=== PATIENT | female | born 1935 | race Caucasian/White ===

== ENCOUNTER 2022-01-14 18:58 | Emergency (ER) | payer MEDICARE, OTHER, MEDICAID ==
[~2022-01-14] VITALS: Ht 157 cm; Wt 58.9 kg
[~2022-01-14 18:58] MED LIST: AMLO10TA PO; ASPI-624 PO; CLOP75TA PO; CYCL10TA9 PO; HYDR-2890 PO; LISI20TA PO; PARO20TA4 PO; PRV20T PO
[2022-01-14 19:00] VITALS: BP 156/77
--- NOTE | 2022-01-14 19:12 | ED Fall/Injury ---
General Stated Complaint: FALL Source: patient (PT IS POOR HISTORIAN), EMS, [facility]pc records History of Present Illness Date Seen by Provider: Jan 14, 2022 Time Seen by Provider: 19:05 Initial Comments PT ARRIVES VIA EMS FROM [facility]--NO IMMOBILIZATION PT REPORTEDLY FELL AT THE LONG-TERM--NO CALL / REPORT FROM LONG-TERM DETAILS OF INCIDENT ARE NOT KNOWN--IS NOT KNOWN IF WITNESSED OR NOT, WHERE SHE FELL, WHEN SHE WAS LAST SEEN, ETC. BASELINE MENTATION IS NOT KNOWN AT THIS TIME, OTHER THAN LONG-TERM STAFF REPORTED TO EMS STAFF THAT WHEN PT GETS MAD, SHE WON'T TALK. WAS ALSO REPORTED TO EMS THAT PT WAS AT [facility] YESTERDAY FOR HIP PAIN, BUT THAT PT DIDN'T WANT TO GO BACK THERE TODAY, SO BROUGHT HER HERE. PT HAS WOUND TO MID FOREHEAD PT IS ON ASPIRIN, BUT NO OTHER BLOOD THINNERS. WHEN ASKED IF SHE HAS PAIN ANYWHERE, PT DENIES WHEN ASKED WHAT HAPPENED, PT STATES "I FELL" "I WAS GETTING AWAY FROM THEM PEOPLE" WHEN ASKED WHERE SHE WAS, PT STATES "I WANTED TO BE AT [facility]" PT IS OTHERWISE DISORIENTED SPEECH IS CLEAR, AND PT IS ABLE TO FOLLOW COMMANDS ON ARRIVAL PCP: DR. ALFARO Allergies and Home Medications Allergies Coded Allergies: Sulfa (Sulfonamide Antibiotics) (Verified Allergy, Unknown, RASH, 01/22/14) Patient Home Medication List Home Medication List Reviewed: Yes Amlodipine Besylate (Amlodipine Besylate) 10 Mg Tablet, 10 MG PO DAILY, (Reported) Entered as Reported by: CHUY CALDERON on 01/11/14 09 Aspirin (Aspirin) 81 Mg Tablet, 81 MG PO DAILY, (Reported) Entered as Reported by: CHUY CALDERON on 01/11/14 09 Clopidogrel Bisulfate (Plavix 75 Mg) 75 Mg Tablet, 75 MG PO [facility], (Reported) Entered as Reported by: CHUY CALDERON on 01/11/14 09 Cyclobenzaprine Hcl (Cyclobenzaprine Hcl) 10 Mg Tablet, 1 EACH PO Q8H Prescribed by: KELSEY SIDHU on 01/25/14 1551 Hydrocodone Bit/Acetaminophen (Hydrocodon-Acetaminophn 10-325) 1 Each Tablet, 1 EACH PO Q4H Prescribed by: KELSEY SIDHU on 01/25/14 1550 Lisinopril (Prinivil) 20 Mg Tablet, 20 MG PO BID, (Reported) Entered as Reported by: CHUY CALDERON on 01/11/14 09 Paroxetine Hcl (Paroxetine Hcl) 20 Mg Tablet, 20 MG PO HS, (Reported) Entered as Reported by: CHUY CALDERON on 01/11/14 0947 Pravastatin Sodium (Pravachol) 20 Mg Tablet, 20 MG PO HS, (Reported) Entered as Reported by: CHUY CALDERON on 01/11/1447 Review of Systems Review of Systems Constitutional: other (UNABLE TO GIVE ANY INFORMATION) Past Rioyrrw-Engkkl-Optoei Hx Patient Social History Smoking Status: Unknown if Ever Smoked Use of E-Cig and/or Vaping Mehul: Unknown if Ever Used Immunizations Up To Date Tetanus Booster (TDap): More than 5yrs PED Vaccines UTD: No Past Medical History Surgeries: Yes (L-SPINE SURGERY 2013;BILAT CATARACTS;CARDIAC STENTS;OTHER SX UNKNOWN) Coronary Stent, Eye Surgery, Orthopedic Respiratory: No (HX OF COVID-19 INFECTION) Cardiac: Yes Chronic Edema/Swelling, Coronary Artery Disease, High Cholesterol, Hypertension Neurological: Yes (BASELINE IS UNKNOWN : ?? DEMENTIA ??) Neuropathy, Stroke Reproductive Disorders: No Gastrointestinal: Yes Chronic Constipation Musculoskeletal: Yes (LUMBAR RADICULOPATHY; GENERALIZED WEAKNESS) Degenerate Disk Disease, Arthritis, Chronic Back Pain Endocrine: Yes Hypothyroidsim HEENT: Yes (S/P BILAT CATARACTS) Cataract Psychosocial: Yes Anxiety, Depression Adverse Reaction/Blood Tranf: No Family Medical History Alcoholism 09 BROTHER Family history: Arthritis SON Family history: Cardiovascular disease SON Family history: Diabetes mellitus DAUGHTER Myocardial infarction 09 BROTHER Stroke 03 MOTHER 09 BROTHER No Family History of: Cancer Congenital heart disease Dementia Family history: Alzheimer's disease Family history: Breast disease Family history: Gastrointestinal disease Family history: Thyroid disorder Hereditary disease History of - respiratory disease Kidney disease PT IS DNR/DNI Physical Exam Vital Signs Vital Signs - First Documented 01/14/22 19:00 Temp 36.7 Pulse 120 Resp 20 B/P (MAP) 156/77 (103) Pulse Ox 92 O2 Delivery Room Air Capillary Refill : Height, Weight, BMI Height: 5'1.00" Weight: 134lbs. oz. 60.896634wc; BMI Method: General Appearance: WD/WN, no apparent distress HEENT: PERRL/EOMI, normal ENT inspection, TMs normal, pharynx normal, other (1.5 CM SUPERFICIAL LACERATION TO MID FOREHEAD. NO ACTIVE BLEEDING AT THIS TIME. POST OP CHANGES TO EYES C/W BILAT CATARACT SURGERY) Neck: non-tender, normal inspection Cardiovascular: regular rate, rhythm, no murmur Respiratory: chest non-tender, normal breath sounds, no respiratory distress, no accessory muscle use Peripheral Pulses: 2+ Dorsalis Pedis (R), 2+ Left Dors-Pedis (L), 2+ Radial Pulses (R), 2+ Radial Pulses (L) Gastrointestinal: non tender, soft Back: normal inspection, no CVA tenderness, no vertebral tenderness Extremities: normal range of motion, non-tender, normal inspection, no pedal edema, no calf tenderness, normal capillary refill, other (NO EXTERNAL EVIDENCE OF TRAUMA TO EXTREMITIES, AND NO TENDERNESS TO PALPATION OR WITH MOVEMENT OF ANY EXTREMITIES) Neurologic/Psychiatric: back tender fourdrinier II-XII nml as tested, no motor/sensory deficits, alert, normal mood/affect, other (ORIENTED TO PERSON AND PLACE. OTHERWISE DISORIENTED. SPEECH IS CLEAR, MOVES ALL EXTREMITIES EQUALLY, AND FOLLOWS COMMANDS) Skin: normal color, warm/dry Arnold Coma Score Best Eye Response: (4) Open Spontaneously Best Verbal Response: (4) Confused Conversation Best Motor Response: (6) Obeys Commands [place] Total: 14 Procedures/Interventions Other Wound Location FOREHEAD Wound Length (cm): 1.5 Wound's Depth, Shape: superficial Wound Explored: clean Betadine Prep?: No (BETASEPT) Other Closure Supply: Wound Adhesive Progress/Results/Core Measures Results/Orders My Orders Orders - TITO DHILLON DO Pelvis/Eduardo Hips 5> Views (01/14/22 19:02) Ct Head/Face/Cervical Wo (01/14/22 19:06) Vital Signs/I&O 01/14/22 19:00 Temp 36.7 Pulse 120 Resp 20 B/P (MAP) 156/77 (103) Pulse Ox 92 O2 Delivery Room Air Progress Progress Note : Progress Note UNEVENTFUL ER STAY Diagnostic Imaging Comments XRAYS PELVIS AND BILATERAL HIPS--PER RADIOLOGIST REPORT AT 1954 FINDINGS: There are degenerative findings in the visualized lower lumbar spine. No acute fracture or dislocation is identified. No abnormal lytic or sclerotic focus is seen, and there is no radiopaque foreign body. IMPRESSION: No acute abnormality. CT HEAD/MAXILLOFACIALS/CERVICAL SPINE--PER RADIOLOGIST REPORT AT 2002 CT HEAD: Ventricles and sulci are diffusely prominent. There is low-density in the deep white matter of both hemispheres and periventricular white matter as well as focal lucency in the left thalamus. There is no evidence of hemorrhage. There is no abnormal mass effect or shift of midline structures. Calvarium is intact and the visualized paranasal sinuses are clear. IMPRESSION: Rather advanced senescent findings in the brain without CT evidence of acute intracranial abnormality. MAXILLOFACIAL CT: There is no evidence of an acute fracture or malalignment. No paranasal sinus air-fluid level is seen. The globes are intact without evidence of orbital hematoma or fluid collection. There is calcification along the medial aspect of both orbits which may be related to lacrimal ducts. No focal hematoma is seen. IMPRESSION: No acute maxillofacial abnormality is identified. CT CERVICAL SPINE: There is slight anterolisthesis of C5 on C6. There is diffuse degenerative facet arthropathy. No acute fracture is identified. There is no evidence of paraspinous hematoma. IMPRESSION: Cervical spondylosis without evidence of acute cervical spinal abnormality. Reviewed: Reviewed by Me Departure Impression Primary Impression: ALLEGED FALL Additional Impressions: CLOSED HEAD INJURY WITH UNKNOWN LOSS OF CONSCIOUSNESS Forehead laceration Disposition: 03 XFER SNF Condition: Stable Departure-Patient Inst. Decision time for Depature: 20:05 Referrals: TITO ALFARO MD Patient Instructions: Closed Head Injury (DC), Laceration Repair With Glue ED, Preventing Falls in the Older Adult Add. Discharge Instructions: LEAVE GLUE IN PLACE--WILL FALL OFF ON IT'S OWN IN A FEW DAYS ICE TO SORE AREAS AT 20 MINUTE INTERVALS TYLENOL NEEDED FOR PAIN FOLLOW UP WITH YOUR DR NEEDED, RETURN TO ER IF WORSE TITO DHILLON DO Jan 14, 2022 19:12
--- NOTE | 2022-01-14 19:50 | Diagnostic Imaging Report ---
INDICATION: Fall with bilateral hip pain. EXAMINATION: AP view of the pelvis was obtained with coned AP and frog-leg views of both hips. FINDINGS: There are degenerative findings in the visualized lower lumbar spine. No acute fracture or dislocation is identified. No abnormal lytic or sclerotic focus is seen, and there is no radiopaque foreign body. IMPRESSION: No acute abnormality. Dictated by: Dictated on workstation # [id number]
--- NOTE | 2022-01-14 20:01 | Diagnostic Imaging Report ---
PROCEDURE: CT head, face and cervical spine without contrast. TECHNIQUE: Multiple contiguous axial images were obtained through the head, neck, and facial bones without the use of intravenous contrast. Sagittal and coronal reformations through the cervical spine and facial bones were also performed. Auto Exposure Controls were utilized during the CT exam to meet ALARA standards for radiation dose reduction. INDICATION: Fall with head, face and cervical injury. CT HEAD: Ventricles and sulci are diffusely prominent. There is low-density in the deep white matter of both hemispheres and periventricular white matter as well as focal lucency in the left thalamus. There is no evidence of hemorrhage. There is no abnormal mass effect or shift of midline structures. Calvarium is intact and the visualized paranasal sinuses are clear. IMPRESSION: Rather advanced senescent findings in the brain without CT evidence of acute intracranial abnormality. MAXILLOFACIAL CT: There is no evidence of an acute fracture or malalignment. No paranasal sinus air-fluid level is seen. The globes are intact without evidence of orbital hematoma or fluid collection. There is calcification along the medial aspect of both orbits which may be related to lacrimal ducts. No focal hematoma is seen. IMPRESSION: No acute maxillofacial abnormality is identified. CT CERVICAL SPINE: There is slight anterolisthesis of C5 on C6. There is diffuse degenerative facet arthropathy. No acute fracture is identified. There is no evidence of paraspinous hematoma. IMPRESSION: Cervical spondylosis without evidence of acute cervical spinal abnormality. Dictated by: Dictated on workstation # [id number]
== END 2022-01-14 21:38 ==
LOC: EDUNIT# 18:58 → ER 19:01
DX: S06.9X9A Unspecified intracranial injury with loss of consciousness of unspecified duration, initial encounter (principal); S01.81XA Laceration without foreign body of other part of head, initial encounter; R40.2410 Glasgow coma scale score 13-15, unspecified time; W19.XXXA Unspecified fall, initial encounter
CPT/HCPCS: 70450; 70486; 72125; 73523

== ENCOUNTER → 2022-01-17 | Outpatient (CLI) | payer MEDICARE, OTHER, MEDICAID ==
[2022-01-17 14:03] LABS: ABSOLUTE RETIC # 44 10e9/uL (24-90); RETICULOCYTE % 1.17 % (0.50-2.40)
[2022-01-17 14:33] LABS: BAND NEUTROPHILS 2 %; BASOPHILS % (MANUAL) 0 %; EOSINOPHILS % (MANUAL) 0 %; LYMPHOCYTES % (MANUAL) 5 %; MONOCYTES % (MANUAL) 9 %; NEUTROPHILS % (MANUAL) 84 %; RBC MORPH NORMAL
== END ==
LOC: LABNPT 07:00
PROVIDERS: ATTEND Family Medicine
DX: D72.829 Elevated white blood cell count, unspecified (principal)
CPT/HCPCS: 85007; 85045; 85055

== ENCOUNTER → 2022-02-19 | Outpatient (CLI) | payer MEDICARE, OTHER, MEDICAID | LOC: WOUNDCARE 08:52 | PROVIDERS: ATTEND Family Medicine | DX: T81.31XA Disruption of external operation (surgical) wound, not elsewhere classified, initial encounter (principal); L02.31 Cutaneous abscess of buttock; B95.62 Methicillin resistant Staphylococcus aureus infection as the cause of diseases classified elsewhere; D53.1 Other megaloblastic anemias, not elsewhere classified; E44.0 Moderate protein-calorie malnutrition; F03.90 Unspecified dementia, unspecified severity, without behavioral disturbance, psychotic disturbance, mood disturbance, and anxiety; R63.4 Abnormal weight loss; Z68.20 Body mass index [BMI] 20.0-20.9, adult | CPT/HCPCS: 11042; G0463 ==

== ENCOUNTER → 2022-02-28 | Outpatient (CLI) | payer MEDICARE, OTHER, MEDICAID | LOC: WOUNDCARE 09:02 | PROVIDERS: ATTEND Family Medicine | DX: T81.31XA Disruption of external operation (surgical) wound, not elsewhere classified, initial encounter (principal); L02.31 Cutaneous abscess of buttock; B95.62 Methicillin resistant Staphylococcus aureus infection as the cause of diseases classified elsewhere; D53.1 Other megaloblastic anemias, not elsewhere classified; E44.1 Mild protein-calorie malnutrition; F03.90 Unspecified dementia, unspecified severity, without behavioral disturbance, psychotic disturbance, mood disturbance, and anxiety; R63.4 Abnormal weight loss; I96 Gangrene, not elsewhere classified | CPT/HCPCS: 11042; G0463 ==

== ENCOUNTER → 2022-03-07 | Outpatient (CLI) | payer MEDICARE, OTHER, MEDICAID | LOC: WOUNDCARE 09:05 | PROVIDERS: ATTEND Family Medicine | DX: L02.31 Cutaneous abscess of buttock (principal); T81.31XA Disruption of external operation (surgical) wound, not elsewhere classified, initial encounter; D53.1 Other megaloblastic anemias, not elsewhere classified; E44.1 Mild protein-calorie malnutrition; F03.90 Unspecified dementia, unspecified severity, without behavioral disturbance, psychotic disturbance, mood disturbance, and anxiety; R63.4 Abnormal weight loss; I96 Gangrene, not elsewhere classified | CPT/HCPCS: 11042 ==

== ENCOUNTER → 2022-03-14 | Outpatient (CLI) | payer MEDICARE, OTHER, MEDICAID | LOC: WOUNDCARE 09:08 | PROVIDERS: ATTEND Family Medicine | DX: L02.31 Cutaneous abscess of buttock (principal); T81.31XA Disruption of external operation (surgical) wound, not elsewhere classified, initial encounter; D53.1 Other megaloblastic anemias, not elsewhere classified; E44.1 Mild protein-calorie malnutrition; F03.90 Unspecified dementia, unspecified severity, without behavioral disturbance, psychotic disturbance, mood disturbance, and anxiety; R63.4 Abnormal weight loss; I96 Gangrene, not elsewhere classified | CPT/HCPCS: 11042; A6212; G0463 ==

== ENCOUNTER → 2022-03-20 | Outpatient (CLI) | payer MEDICARE, OTHER, MEDICAID | LOC: WOUNDCARE 09:35 | PROVIDERS: ATTEND Family Medicine | DX: T81.31XA Disruption of external operation (surgical) wound, not elsewhere classified, initial encounter (principal); L02.31 Cutaneous abscess of buttock; D53.1 Other megaloblastic anemias, not elsewhere classified; E44.0 Moderate protein-calorie malnutrition; I96 Gangrene, not elsewhere classified; F03.90 Unspecified dementia, unspecified severity, without behavioral disturbance, psychotic disturbance, mood disturbance, and anxiety; R63.4 Abnormal weight loss; Z68.20 Body mass index [BMI] 20.0-20.9, adult | CPT/HCPCS: 17250; A6212; G0463 ==

== ENCOUNTER → 2022-03-30 | Outpatient (CLI) | payer MEDICARE, OTHER, MEDICAID | LOC: WOUNDCARE 09:22 | PROVIDERS: ATTEND Family Medicine | DX: T81.31XA Disruption of external operation (surgical) wound, not elsewhere classified, initial encounter (principal); L02.31 Cutaneous abscess of buttock; D53.1 Other megaloblastic anemias, not elsewhere classified; E44.1 Mild protein-calorie malnutrition; F03.90 Unspecified dementia, unspecified severity, without behavioral disturbance, psychotic disturbance, mood disturbance, and anxiety; R63.4 Abnormal weight loss | CPT/HCPCS: 99212 ==